=== PATIENT | male | born 1990 | race African-American/Black ===

== ENCOUNTER 2021-05-30 23:16 | Emergency (ER) | payer OTHER | END 2021-05-31 01:10 | disposition home or self-care (01) | LOC: FER 23:16 | DX: S61.211A Laceration without foreign body of left index finger without damage to nail, initial encounter (principal); F17.290 Nicotine dependence, other tobacco product, uncomplicated; Z23 Encounter for immunization; W26.8XXA Contact with other sharp object(s), not elsewhere classified, initial encounter; Y93.89 Activity, other specified | CPT/HCPCS: 73130; 90471; 90714 ==